=== PATIENT | female | born 1990 | race Caucasian/White ===

== ENCOUNTER 2024-03-09 10:46 | Observation (INO) | payer BC ==
[2024-03-09 11:12] VITALS: BMI 24.4
[2024-03-09 13:10] LABS: BASO % 0.8 % (0-2.0); EOS % 0.1 % (0-4.5); HEMATOCRIT 40.4 % (32.4-45.2); HEMOGLOBIN 13.8 GM/dL (10.7-15.3); LYMPH % 26.7 % (8-40); MCH 28.7 pg (25.7-33.7); MCHC 34.2 g/dl (32.0-36.0); MEAN CELL VOLUME 83.9 fl (80-96); MEAN PLT VOLUME 7.3 fl (7.5-11.1); MONO % 5.8 % (3.8-10.2); NEUT % 66.6 % (42.8-82.8); PLATELET COUNT 413 10^3/uL (134-434); RBC 4.81 M/mm3 (3.60-5.2); RDW 12.8 % (11.6-15.6); WHITE BLOOD COUNT 10.1 K/mm3 (4.0-10.0)
[2024-03-09 14:37] LABS: CHLORIDE 105 mmol/L (98-107); POTASSIUM 3.8 mmol/L (3.5-5.1); SODIUM 138 mmol/L (136-145)
[2024-03-09 14:40] LABS: ANION GAP 9 mmol/L (4-13); CALCIUM 9.6 mg/dL (8.5-10.1); CO2 24 mmol/L (21-32); GLUCOSE,RANDOM 103 mg/dL (74-106)
[2024-03-09 14:42] LABS: ALBUMIN 3.8 g/dl (3.4-5.0)
[2024-03-09 14:44] LABS: CREATININE 0.8 mg/dL (0.55-1.3); SGOT/AST 25 U/L (15-37); SGPT/ALT 23 U/L (13-61)
[2024-03-09 14:45] LABS: BILIRUBIN,TOTAL 0.5 mg/dL (0.2-1); TOT PROT 7.7 g/dl (6.4-8.2)
[2024-03-09 14:46] LABS: ALK PHOS 72 U/L (45-117)
[2024-03-09] MEDS ORDERED: QUEtiapine FUMARATE 25 MG TABLET ONE ×2 (22:46→22:54)
[2024-03-09] MEDS ORDERED: GABAPENTIN 100 MG CAPSULE ONE ×2 (22:46→22:54)
[2024-03-09] MEDS: GABAPENTIN 100 MG CAPSULE PO SCH (22:57)
[2024-03-09] MEDS: QUEtiapine FUMARATE 25 MG TABLET PO SCH (22:57)
[2024-03-10] MEDS ORDERED: GABAPENTIN 100 MG CAPSULE ONE (06:02)
[2024-03-10 06:15] VITALS: TEMP 98.2
[2024-03-10] MEDS ORDERED: LORazepam 1 MG TABLET ONE (09:39)
[2024-03-10] MEDS: LORazepam 1 MG TABLET PO PRN (09:50)
[2024-03-10] MEDS: lamoTRIgine 100 MG TABLET PO SCH (10:03)
[2024-03-10] MEDS: ENOXAPARIN NA (PORCINE) 40 MG/0.4 ML DISP.SYRIN SQ SCH (10:03)
[2024-03-10 13:52] VITALS: BP 128/72; PULSE 72; RESP 68
== END 2024-03-10 14:32 | disposition home or self-care (01) ==
LOC: JER 10:46 → JERBED 15:12 → UNDOADMOB 15:12 → INTOOBSV 15:12 → JERBED 15:38
PROVIDERS: ADMIT Internal Medicine; ATTEND Internal Medicine
PROC: 3E023GC Introduction of Other Therapeutic Substance into Muscle, Percutaneous Approach (ICD-10-PCS; principal; 2024-03-09)
DX: F60.0 Paranoid personality disorder (principal); F41.8 Other specified anxiety disorders; R45.1 Restlessness and agitation; R45.851 Suicidal ideations; Z91.148 Patient's other noncompliance with medication regimen for other reason
CPT/HCPCS: 36415; 80053; 80307; 84702; 85025; 93005; 93010; 99285-25; G0378